=== PATIENT | male | born 1965 | race Caucasian/White ===

== ENCOUNTER 2025-09-08 01:28 | Day surgery (SDC) | payer OTHER, SELFPAY ==
[2025-09-04 08:56] VITALS: BMI 25.7
--- NOTE | 2025-09-04 09:08 | PC.NURSE ---
Addendum entered by William Soriano RN 09/04/25 09:54: Patient stopped Meloxicam on 09-01-2025 per 's instructions. Original Note: [facility] has started construction of its new state of the art ER which will open Spring 2026. With this, we anticipate parking may be a challenge for some our surgical patients and families. Parking spaces are limited but are available for all Surgical, obstetrics, and ER patients sharing this lot. If you arrive and find you are having a hard time finding a parking space, please note that we understand the challenges, please drive around the hospital and park near Hospital Entrance 1. When you enter this entrance, you can ask a volunteer to direct or take you back to the surgical waiting area to check in. We appreciate everyone?s understanding of these expected challenges while we build for your future. Report to the Outpatient Waiting Room, entrance under the green pavilion located off [address], at time _1000_ on date _[phone]_. Planned Procedure Time: _1200_.? Time changes happen often and if your time is changed the preop area will call you the afternoon before. - You and your visitor will be asked to self-screen and do not enter if you have any COVID symptoms. Please call surgeon if you need to reschedule. - A mask is optional within the hospital at this time. Patients may have clear liquids (water, carbonated beverages, clear teas, apple juice) until 3 hours prior to surgery with a maximum of 20 ounces. - No food from midnight until time of surgery and no smoking, or chewing tobacco (or any form of nicotine). No chewing gum, candy or mints. Take only the following medications with a SIP of water on the morning of surgery: __Gabapentin and if needed pain pill.___ DO NOT STOP ANY OF YOUR OTHER PRESCRIPTION MEDICATIONS PRIOR TO SURGERY EXCEPT THE FOLLOWING Hold all vitamins and supplements for 3 days per anesthesiologist. Medications to discontinue per physician Date to take last dose___Today.__ Please no make-up, nail maltese, hairspray, perfume, deodorant, or body powder the day of surgery.? No jewelry (including any body piercings) or valuables the day of surgery, leave them at home.? Please take a shower or bath the night before, or the morning of, surgery with an antibacterial soap.? Wear comfortable, loose fitting clothing.? - Jewelry must be removed prior to entering the operating room.? Rings and piercings that are not removed may be cut off. - The hospital will not accept responsibility for valuables.? - Please leave all valuables, including medications, at home the day of surgery. If you are going home after surgery, a licensed driver's education instructor must drive you home.? - NO public transportation without another adult if you receive anesthesia. - We recommend that an adult stay with you for 24 hours following discharge. - We also recommend that you do not drive, make important decision, drink alcoholic beverages, or take any drugs that were not prescribed by your health care provider for at least 24 hours after your discharge time. Follow any additional instructions given to you from your surgeon. Telephone instructions given to __Edward___and asked if any additional questions and then verbalized understanding. Patient advised to call surgeon office or pre surgery nurse liaison [phone] if any additional questions.
[2025-09-08] VITALS (10 sets, daily range): BP systolic 73–116; BP diastolic 55–82; PULSE 72–99; RESP 11–20; TEMP 36.2; O2SAT 97–100; BMI 25.0
--- NOTE | ~2025-09-08 | XR_ITS ---
EXAMINATION: XR abdomen/kub 1V DATE: 09/08/2025 10:13 INDICATION: Pre Litho right-sided stone TECHNIQUE: A supine view of the abdomen on 2 radiographs was obtained. COMPARISON: None. FINDINGS: Large amount of stool in nondilated large bowel. Moderate amount of air in the large bowel small bowel. 6 mm calcification in the left kidney. There is a 5 mm calcification about the right lateral process of L4. 6 mm calcification in the right hemipelvis. IMPRESSION: 1. There is a 6 mm calcification in the left kidney. 2.There is a 5 mm calcification about the right lateral process of L4 3. Nonspecific abdomen with a large amount of stool. Reviewed, dictated and finalized at location Q.
--- OUTSIDE RECORDS SUMMARY | 2025-09-08 01:31 | XMS_ITS | Clinical Summary ---
Author Organization [facility] Address [address] [place] [address] Care Team Providers Care System Support Administrator Name Role Phone None, Provider MD Primary Care Provider Unavaila ble Allergies No known active allergies Medications oxyCODONE-aceta minophen (PERCOCET) 5-325 MG tabletIndicatio ns:Acute Pain < 7 Day Supply Take 1 tablet by mouth every 6 (six) hours as needed for Pain. Indications: Acute Pain < 7 Day Supply 21 tablet 08/30/2025 Active gabapentin (NEURONTIN) 100 MG capsule Take 1 capsule (100 mg total) by mouth 3 (three) times daily. 90 capsule 08/30/2025 Active dexamethasone (DECADRON) 2 MG tablet Take 2 tablets (4 mg total) by mouth 2 (two) times daily with meals for 10 days. 40 tablet 08/30/2025 Active famotidine (PEPCID) 20 MG tablet Take 1 tablet (20 mg total) by mouth 2 (two) times daily. 60 tablet 08/30/2025 Active Encounters Date Type Department Care Team Description 08/30/2025 12:48 PM CDT - 08/30/2025 9:57 PM CDT Emergency [facility] [place] [address] Dallas Jama MD Back Pain Discharge Disposition: Home or Self Care (Routine Discharge) 08/30/2025 Travel from Last 3 Months Social History Tobacco Use Types Packs/Day Years Used Date Smoking Tobacco: Never Smokeless Tobacco: Never Tobacco Cessation:Counseling Given: Not Answered Sex and Gender Information Value Date Recorded Sex Assigned at Male 08/30/2025 12:54 PM CDT Legal Sex Male 8:08 PM CDT Gender Identity Not on file Sexual Orientation Not on file Last Filed Vital Signs Vital Sign Reading Time Taken Comments Blood Pressure 138/101 08/30/2025 9:46 PM CDT Pulse 89 08/30/2025 9:46 PM CDT Temperature 36.6 C (97.8 F) 08/30/2025 9:46 PM CDT Respiratory Rate 20 08/30/2025 9:46 PM CDT Oxygen Saturation 99% 08/30/2025 9:46 PM CDT Inhaled Oxygen Concentration - - Weight 89.4 kg (197 lb) 08/30/2025 12:37 PM CDT Height 185.4 cm (6' 1) 08/30/2025 12:37 PM CDT Body Mass Index 25.99 08/30/2025 12:37 PM CDT Plan of Treatment Health Maintenance Due Date Last Done Comments Colorectal Cancer Screening Colonoscopy (10 Years) 1965 Annual Physical 1967 Hepatitis C 1982 Pneumococcal Vaccine: 50+ Years (1 of 1 - PCV) 2014 Zoster Vaccines (1 of 2) 2014 COVID-19 Vaccine ( - season) 2025 11/28/2021, 02/14/2021, 01/17/2021 Influenza Adult (#1) 2025 10/07/2022, 11/28/2021, 08/18/2017, Additional history exists DTaP, Tdap and Td Vaccines (2 - Td or Tdap) 08/08/2027 08/08/2017 RSV Immunization or 60+ Years (1 - 1-dose 75+ series) 2039 Meningococcal B Vaccine Aged Out No l onger eligible based on patient's age to complete this topic Meningococcal Vaccine Aged Out No rajan carmina eligible based on patient's age to complete this topic RSV Immunizations Under 20 Months Aged Out No longer eligible based on patient's age to complete this topic Procedures Procedure Name Priority Date/Time Associated Diagnosis Comments MRI LUMB SPINE WO CON STAT 08/30/2025 7:17 PM CDT USV BHAVYA DUPLEX LOW EXT LT STAT 08/30/2025 1:36 PM CDT HC URINALYSIS AUTO W/O MICRO STAT 08/30/2025 1:12 PM CDT D-DIMER, QUANTITATIVE STAT 08/30/2025 12:59 PM CDT BASIC METABOLIC PANEL STAT 08/30/2025 12:59 PM CDT CBC W/DIFF AUTOMATED STAT 08/30/2025 12:59 PM CDT from Last 3 Months Results * MRI LUMB SPINE WO CON (08/30/2025 7:17 PM CDT) Anatomical Region Laterality Modality Spine Magnetic Resonan ce 08/30/2025 7:48 PM CDT Impressions 08/30/2025 7:56 PM CDT IMPRESSION: Degenerative disease as above, without evidence of severe focal spinal canal stenosis. This includes a left-sided disc herniation at L5-S1 with associated left sided nerve compression. Referred By: Interpreted By: Melvin Carroll MD, 08/30/2025 7:48 PM Narrative 08/30/2025 7:56 PM CDT [address] [address] EXAMINATION: MRI LUMB SPINE WO CON HISTORY: Pain and numbness DATE: 08/30/2025 6:58 PM COMPARISON: None TECHNIQUE: Multisequence multiplanar unenhanced imaging of the lumbar spine. FINDINGS: Alignment is unremarkable. No bone marrow edema or fracture. Conus medullaris terminates at L1-2 and tapers normally. Small hemangiomas in the L3 and L4 vertebral bodies. T12-L1: Mild facet arthritis. No significant spinal canal or neuroforaminal narrowing. L1-L2: Moderate facet arthritis. Mild spinal canal narrowing. No significant neuroforaminal narrowing. L2-L3: Moderate facet arthritis. Mild to moderate spinal canal narrowing. Mild bilateral neural foraminal narrowing. L3-L4: Moderate to severe facet arthritis. Small disc bulge. Mild to moderate spinal canal narrowing L4-L5: Severe facet arthritis. Moderate spinal canal narrowing with narrowing of the right lateral recess. Moderate bilateral neuroforaminal narrowing. L5-S1: Disc bulge with superimposed left paracentral extrusion with inferior migration of disc material. This contacts and likely compresses the left S1 nerve root within the lateral recess. Mild spinal canal narrowing overall. There is moderate bilateral neuroforaminal narrowing. There is moderate facet arthritis. Procedure Note Melvin Carroll MD - 08/30/[address] [address] EXAMINATION: MRI LUMB SPINE WO CON HISTORY: Pain and numbness DATE: 08/30/2025 6:58 PM COMPARISON: None TECHNIQUE: Multisequence multiplanar unenhanced imaging of the lumbarspine. FINDINGS: Alignment is unremarkable. No bone marrow edema or fracture.Conus medullaris terminates at L1-2 and tapers normally. Small hemangiomasin the L3 and L4 vertebral bodies. T12-L1: Mild facet arthritis. No significant spinal canal orneuroforaminal narrowing. L1-L2: Moderate facet arthritis. Mild spinal canal narrowing. Nosignificant neuroforaminal narrowing. L2-L3: Moderate facet arthritis. Mild to moderate spinal canal narrowing.Mild bilateral neural foraminal narrowing. L3-L4: Moderate to severe facet arthritis. Small disc bulge. Mild tomoderate spinal canal narrowing L4-L5: Severe facet arthritis. Moderate spinal canal narrowing withnarrowing of the right lateral recess. Moderate bilateral neuroforaminalnarrowing. L5-S1: Disc bulge with superimposed left paracentral extrusion withinferior migration of disc material. This contacts and likely compressesthe left S1 nerve root within the lateral recess. Mild spinal canalnarrowing overall. There is moderate bilateral neuroforaminal narrowing.There is moderate facet arthritis. IMPRESSION: Degenerative disease as above, without evidence of severefocal spinal canal stenosis. This includes a left-sided disc herniation atL5-S1 with associated left sided nerve compression. Referred By: Interpreted By: Melvin Carroll MD, 08/30/2025 7:48 PM Dallas Jama MD MRI Final Result * USV BHAVYA DUPLEX LOW EXT LT (08/30/2025 1:36 PM CDT) Anatomical Region Laterality Modality Vascular Ultraso und 08/30/2025 1:14 PM CDT Narrative 09/01/2025 7:33 AM CDT VENOUS DUPLEX IMAGING LEFT LOWER EXTREMITY [facility]ASCULAR LAB Pat.Name: ANDRAE ALANIZ Pat.ID: [id number] .Date: 08/30/2025 Exam Time: 1:14:00 PM Study Type:DANIEL VS Venous Duplex Leg Lt Age: 2 1965,60Y Sex: M Sonogrphr: [place] Shah, T Pat. Stat.:Inpatient Room: ER History / Clinical:back and gluteal pain with pain and numbness radiating down the left leg, negative D-dimer Procedures: Holguin scale, Color Doppler imaging, Doppler Spectral Analysis ++++++++++++++++++++++++++++++++++++ SUMMARY: ++++++++++++++++++++++++++++++++++++ Left leg: There are NO apparent, deep or superficial vein, ACUTE character venous filling defects visualized in the femoral, popliteal, deep calf or proximal saphenous veins. Resting venous flow is normal phasic proximally. Right leg LIMITED: Resting venous flow is normal phasic at the common femoral. CONCLUSION: No evidence of deep vein thrombosis in the left lower extremity. <Electronic Signature> 09/01/2025 07:33 AM Patrick Guan M.D. Procedure Note Patrick Guan MD - 09/01/2025 VENOUS DUPLEX IMAGING LEFT LOWER EXTREMITY [facility]ASC[facility] Pat.Name: ANDRAE ALANIZ Pat.ID: [id number] .Date: 08/30/2025 Exam Time: 1:14:00 PM Study Type:DANIEL VS Venous Duplex Leg Lt Age: 2 1965,60Y Sex: M Sonogrphr: [place]ico Shah, RVT Pat. Stat.:Inpatient Room: ER History / Clinical:back and gluteal pain with pain and numbness radiating down the left leg, negative D-dimer Procedures: Holguin scale, Color Doppler imaging, Doppler Spectral Analysis ++++++++++++++++++++++++++++++++++++ SUMMARY: ++++++++++++++++++++++++++++++++++++ Left leg: There are NO apparent, deep or superficial vein, ACUTE character venous filling defects visualized in the femoral, popliteal, deep calf or proximal saphenous veins. Resting venous flow is normal phasic proximally. Right leg LIMITED: Resting venous flow is normal phasic at the common femoral. CONCLUSION: No evidence of deep vein thrombosis in the left lower extremity. <Electronic Signature> 09/01/2025 07:33 AM Patrick Guan M.D. Kaela [facility]illo [facility] Final Result * (ABNORMAL) URINALYSIS (08/30/2025 1:12 PM CDT) SPECIMEN TYPE URINE CLEAN CATCH 08/30/2025 1:14 PM CDT [facility] COLOR (U) LIGHT YELLOW 08/30/2025 2:37 PM CDT [facility] TRANSPARENCY CLEAR 08/30/2025 2:37 PM CDT [facility] SPECIFIC GRAVITY (U) 1.018 1.001 - 1.030 08/30/2025 2:37 PM CDT [facility] U PH 5.5 5.0 - 9.0 08/30/2025 2:37 PM CDT [facility] LEUKOCYTES (U) NEGATIVE NEGATIVE 08/30/2025 2:37 PM CDT [facility] NITRITES NEGATIVE NEGATIVE 08/30/2025 2:37 PM CDT [facility] PROTEIN RANDOM (U) NEGATIVE <30 MG/DL 08/30/2025 2:37 PM CDT [facility] GLUCOSE (U) NORMAL NORMAL MG/DL 08/30/2025 2:37 PM CDT [facility] KETONES MG/DL (U) NEGATIVE NEGATIVE MG/DL 08/30/2025 2:37 PM CDT [facility] UROBILINOGEN NORMAL NORMAL MG/DL 08/30/2025 2:37 PM CDT [facility] BILIRUBIN (U) NEGATIVE NEGATIVE MG/DL 08/30/2025 2:37 PM CDT [facility] BLOOD (U) 1+(A) NEGATIVE 08/30/2025 2:37 PM CDT [facility] MUCUS RARE /LPF 08/30/2025 2:37 PM CDT [facility] WBC/HPF 7(H) <6 /HPF 08/30/2025 2:37 PM CDT [facility] RBC/HPF 12(H) <6 /HPF 08/30/2025 2:37 PM CDT [facility] URINE SPECIMEN OBTAINED BY CLEAN CATCH PROCEDURE / Unknown 08/30/2025 1:12 PM CDT us Kaela [facility] URINE ORDERABLES Final Resul t [facility] [address] [place] [address], [place] [phone] * (ABNORMAL) BASIC METABOLIC PANEL (08/30/2025 12:59 PM CDT) GLUCOSE 92 70 - 99 MG/DL 08/30/2025 1:36 PM CDT [facility] BUN 21(H) 7 - 18 MG/DL 08/30/2025 1:36 PM CDT [facility] CREATININE S/P/B 1.30 0.7 - 1.3 MG/DL 08/30/2025 1:36 PM CDT [facility] SODIUM S/P/B 138 136 - 145 MMOL/L 08/30/2025 1:36 PM CDT [facility] POTASSIUM S/P/B 4.0 3.5 - 5.1 MMOL/L 08/30/2025 1:36 PM CDT [facility] CHLORIDE S/P/B 106 97 - 115 MMOL/L 08/30/2025 1:36 PM CDT [facility] CO2 28.5 21 - 32 MMOL/L 08/30/2025 1:36 PM CDT [facility] CALCIUM S/P/B 9.4 8.5 - 10.1 MG/DL 08/30/2025 1:36 PM CDT [facility] ANION GAP 3.5 2 - 10 MMOL/L 08/30/2025 1:36 PM CDT [facility] BUN CREATININE RATIO 16.2 6 - 26 08/30/2025 1:36 PM T [facility] GFR ESTIMATE 63(L) >90 ML/MIN/1.7 3 M2 08/30/2025 1:36 PM CDT [facility] Comment: NOTE: eGFR is not calculated for patients <18 years of age or gender unknown. This is an estimated GFR calculation using the new CKD EPI creatinine equation without race and so does not require a correction factor for race. This estimated GFR should not be used for calculating drug doses. 08/30/2025 12:5 9 PM CDT us [facility] Final Result [facility] [address] [place] [address], * D-DIMER, QUANTITATIVE (08/30/2025 12:59 PM CDT) [facility] D-DIMER <215 0 - 500 ng{FEU}/mL 08/30/2025 2:03 PM CDT [facility] Comment: D-Dimer values less than or equal to 500 ng/mL FEU have a negative predictive value of >95% for exclusion of deep vein thrombosis and pulmonary embolism. In patients over 50 (who tend to have higher normal baseline D-Dimer values), recent studies suggest age-adjusted D-Dimer cutoff values (calculated as: age [years] x 10 ng/mL) result in equivalent outcomes and no additional false negative findings. 08/30/2025 12:5 9 PM CDT [facility] Final Result [facility] [address] [place] [address], * (ABNORMAL) CBC W/DIFF AUTOMATED (08/30/2025 12:59 PM CDT) [facility] WBC 6.45 4.5 - 11.0 x10'3/uL 08/30/2025 1:12 PM CDT [facility] RBC 4.73 4.70 - 6.10 x10'6/uL 08/30/2025 1:12 PM CDT [facility] HGB 14.5 14.0 - 18.0 G/DL 08/30/2025 1:12 PM CDT [facility] HCT 42.3(L) 43.0 - 54.0 % 08/30/2025 1:12 PM CDT [facility] MCV 89.4 80.0 - 94.0 FL 08/30/2025 1:12 PM CDT [facility] MCH 30.7 27.0 - 31.0 PG 08/30/2025 1:12 PM CDT [facility] MCHC 34.3 32.0 - 36.0 G/DL 08/30/2025 1:12 PM CDT [facility] RDW 12.7 11.5 - 14.5 % 08/30/2025 1:12 PM CDT [facility] PLT 207 130 - 400 x10'3/uL 08/30/2025 1:12 PM CDT [facility] MPV 11.7 9.3 - 12.2 FL 08/30/2025 1:12 PM CDT [facility] DIFFERENTIAL TYPE AUTOMATED DIFFERENTIAL 08/30/2025 1:12 PM CDT [facility] NEUTROPHILS % 68.1 % 08/30/2025 1:12 PM CDT [facility] LYMPHOCYTES % 22.3 % 08/30/2025 1:12 PM CDT [facility] MONOCYTES % 7.8 % 08/30/2025 1:12 PM CDT [facility] EOSINOPHILS 0.9 % 08/30/2025 1:12 PM CDT [facility] BASOPHILS 0.6 % 08/30/2025 1:12 PM CDT [facility] IMMATURE GRANS % 0.3 % 08/30/20 1:12 PM CDT [facility] ABS. NEUTROPHILS 4.39 1.80 - 7.70 x10'3/uL 08/30/2025 1:12 PM CDT [facility] ABS. LYMPHOCYTES 1.44 1.00 - 4.80 x10'3/uL 08/30/2025 1:12 PM CDT [facility] ABS. MONOCYTES 0.50 0.30 - 0.82 x10'3/uL 08/30/2025 1:12 PM CDT [facility] ABS. EOSINOPHILS 0.06 0.04 - 0.54 x10'3/uL 08/30/2025 1:12 PM CDT [facility] ABS. BASOPHILS 0.04 0.01 - 0.08 x10'3/uL 08/30/2025 1:12 PM CDT [facility] ABS. IMMATURE GRANULOCYTES 0.02 0.00 - 0.49 x10'3/uL 08/30/2025 1:12 PM CDT [facility] 08/30/2025 12:5 9 PM CDT [facility] Final Result Performing Organization Address City/State/[facility] Co de Phone Number [facility] [address] [place] [address], [place] [phone] from Last 3 Months Insurance [facility] [employer] Care Teams System Support Administrator Relationship Specialty Start Date End Date None, Provider, MD PCP - General UNKNOWN PHYSICIAN SPECIALTY 08/30/25
--- OUTSIDE RECORDS SUMMARY | 2025-09-08 01:31 | XMS_ITS | Clinical Summary ---
Author Organization [facility] Address [address] [place] [address] Phone Care Team Providers Care Continuous Dryout Operator Name Role Phone Joseph Powers MD Primary Care Provider [phone] Allergies No known active allergies Medications fenofibrate micronized (LOFIBRA) 200 MG Capsule Fenofibrate Micronized 200 MG Oral Capsule QTY: 90 capsule Days: 90 Refills: 3 Written: 03/15/20 Patient Instructions: TAKE 1 CAPSULE AT BEDTIME 11/30/19 00 Active HYDROcodone-ac etaminophen (NORCO) 7.5-325 MG Tablet 01/16/20 20 Active lisinopril (PRINIVIL, ZESTRIL) 20 MG Tablet Lisinopril 20 MG Oral Tablet QTY: 90 tablet Days: 90 Refills: 3 Written: 10/19/19 Patient Instructions: TAKE 1 TABLET DAILY 10/19/20 19 Active Edex 10 MCG Kit INJECT 1 KIT BY INTRACAVERNOSAL ROUTE ONCE FOR ONE DOSE PRIOR TO XIAFLEX INJECTION 11/01/20 20 Active Xiaflex 0.9 MG Recon Soln 10/30/20 20 Active meloxicam (MOBIC) 15 MG Tablet 01/07/20 21 Active Active Problems Problem Noted Date Diagnosed Date Peyronie's disease 01/10/2021 Social History Tobacco Use Types Packs/Day Years Used Date Smoking Tobacco: Former Cigarettes Q uit: 04/18/1994 Smokeless Tobacco: Former Chew Quit: 04/18/1994 Tobacco Cessation:Counseling Given: Yes Alcohol Use Standard Drinks/Week Comments Not Currently 0 (1 standard drink = 0.6 oz pur e alcohol) Sexually Active Control Partners Comments Yes Female Sex and Gender Information Value Date Recorded Sex Assigned at Not on file Legal Sex Male 3:46 PM CDT Gender Identity Not on file Sexual Orientation Not on file Last Filed Vital Signs Vital Sign Reading Time Taken Comments Blood Pressure 136/82 01/10/2021 8:17 AM TRANSPORTATION SOLUTIONS MANAGER Pulse 77 01/10/2021 8:17 AM TRANSPORTATION SOLUTIONS MANAGER Temperature 35.7 C (96.3 F) 01/10/2021 8:17 AM TRANSPORTATION SOLUTIONS MANAGER Respiratory Rate 16 11/22/2020 9:10 AM TRANSPORTATION SOLUTIONS MANAGER Oxygen Saturation 98% 01/10/2021 8:17 AM TRANSPORTATION SOLUTIONS MANAGER Inhaled Oxygen Concentration - - Weight 103.4 kg (228 lb) 01/10/2021 8:17 AM TRANSPORTATION SOLUTIONS MANAGER Height 185.4 cm (6' 1) 01/10/2021 8:17 AM TRANSPORTATION SOLUTIONS MANAGER Body Mass Index 30.08 01/10/2021 8:17 AM TRANSPORTATION SOLUTIONS MANAGER Plan of Treatment Health Maintenance Due Date Last Done Comments Hepatitis C Virus (HCV) Screening 1965 Cologuard 2009 Colonoscopy 2009 Colorectal Cancer Screening 2009 Immunochemical Fecal Occult Blood 2009 Pneumococcal Immunization (5 0+ years) (1 of 1 - PCV) 2014 Zoster Immunization (1 of 2) 2014 Influenza Immunization (#1) 07/31/202507/31, 08/08/2017 SARS-COV-2 Immunization ( season) 2025 11/28/2021, 02/14/2021, 01/17/2021 Respiratory Syncytial Virus (RSV) Immunization (Adult) (1 - 1-dose 75+ series) 2039 DTaP/Tdap/Td Immunization Discontinued 08/08/2017 TdaP Immunization Completed 08/08/2017 Hepatitis B Immunization Aged Out No longer eligible based on patient's age to complete this topic Human Papillomavirus (HPV) Immunization Aged Out No longer eligible based on patient's age to complete this topic Meningococcal Immunization (ACWY) Aged Out No longer eligible based on patient's age to complete this topic Rotavirus Immunization Aged Out No lo nger eligible based on patient's age to complete this topic Insurance [facility] Care Teams Continuous Dryout Operator Relationship Specialty Start Date End Date Joseph Powers MD [address] [place] [address] PCP - General Family Medicine 09/24/20
--- NOTE | 2025-09-08 09:02 | ECG_ITS ---
Test Date: 2025-09-08 10:33:14 Measurements Intervals [place] Rate: 85 P: 15 MT: 156 QRS: 2 QRSD: 84 T: 28 QT: 358 QTc: 427 Interpretive Statements SINUS RHYTHM NORMAL ECG No previous ECG available for comparison Electronically Signed On 09-08-2025 10:41:46 CDT by Lionel Gibson D.O.
[2025-09-08] MEDS: LACTATED RINGERS 1,000 ML 30 ML IV CONT (10:45)
--- NOTE | 2025-09-08 10:52 | WPDHPUPDATE1 ---
History and Physical Update Update Date/Time: 09/08/25 10:52 History and Physical has been reviewed, including an updated exam of the patient. There are NO changes in the patient's condition. Risks, benefits, and alternatives have been discussed and questions answered. Patient agrees to proceed with procedure.
[2025-09-08 10:59] LABS: INR 1.0; Prothrombin Time 13.1 Seconds (11.1-14.7)
[2025-09-08 11:00] LABS: Partial Thromboplastin Time 22.8 Seconds (22.3-36.8)
--- NOTE | 2025-09-08 11:13 | WPDANESEPPF ---
Anes - Initial Pre Proc Eval Procedure: Operation Date: 09/08/25 12:00 Proposed Procedures p Right Extracorporeal Shock Wave Lithotripsy - Connor Tierney MD Date/Time: 09/08/25 11:13 Surgeon: Connor Tierney MD Pre Op Diagnosis: urolithiasis Patient Data Age: 60 Gender: M Height: 1.85 m Weight: 85.85 kg Last Vital Signs Temp 36.2 C L 09/08/25 10:45 Pulse 99 09/08/25 10:45 BP 90/66 L 09/08/25 10:45 Pulse Ox 100 09/08/25 10:45 O2 Del Method Room Air 09/08/25 10:45 Allergies Allergy/AdvReac Type Severity Reaction Status Date / Time No Known Allergies Allergy Verified 09/08/25 10:52 Home Medications ?Medication ?Instructions ?Recorded ?Confirmed ?Type cyanocobalamin (vitamin B-12) 1,000 mcg PO DAILY 09/04/25 09/04/25 History 1,000 mcg tablet (Vitamin B-12) dimenhydrinate 50 mg tablet 50 mg PO Q6H PRN motion sickness 09/04/25 09/04/25 History (Dramamine) fenofibrate 160 mg tablet 160 mg PO DAILY 09/04/25 09/04/25 History gabapentin 100 mg capsule 100 mg PO TID 09/04/25 09/08/25 History hydrocodone 7.5 mg-acetaminophen 1 tablet PO Q6H PRN pain 09/04/25 09/08/25 History 325 mg tablet levofloxacin 250 mg tablet 250 mg PO DAILY 09/04/25 09/04/25 History lisinopril 40 mg tablet 40 mg PO DAILY 09/04/25 09/04/25 History magnesium glycinate 100 mg PO HS 09/04/25 09/04/25 History meloxicam 15 mg tablet 15 mg PO DAILY 09/04/25 09/04/25 History multivitamin (Daily Multi-Vitamin 1 tablet PO DAILY 09/04/25 09/04/25 History tablet) oxycodone-acetaminophen 5 mg-325 1 tablet PO Q6H PRN pain 09/04/25 09/04/25 History mg tablet tamsulosin 0.4 mg capsule 0.4 mg PO DAILY 09/04/25 09/04/25 History trazodone 100 mg tablet 100 mg PO HS 09/04/25 09/04/25 History Laboratory Tests 09/08/25 10:41 PT 13.1 Seconds (11.1-14.7) INR 1.0 APTT 22.8 Seconds (22.3-36.8) Patient hx anesthesia problems: none Family hx anesthesia problems: none Results Review: All pre-operative results and documents have been reviewed as part of the pre-operative evaluation. [facility] Past Medical History Medical History (Updated 09/07/25 @ 15:37 by Fermín Muñiz DO) Hypertension Hyperlipidemia Social History Social History Smoking packs per day: 1 Smoking cigarettes per day: 20.0 Years smoked: 15 Smoking pack-years: 15.00 Smoking status: Former smoker Tobacco type: cigarettes Smokeless tobacco user: chewing tobacco Smoking end date: 09/04/95 Alcohol intake: current Living arrangements: with family Spiritual care concerns: No Anes - Eval Final PreProcedure Day of Procedure 09/08/25 11:13 Patient weight: normal Heart: regular rate and rhythm Lungs: clear to auscultation and normal air movement Airway: Mallampati scale class II Neurological: alert and oriented Last oral intake: >/= 8 hours ASA classification: II Emergent: no Anesthetic plan: proceed Anesthesia type and monitoring: general GIVS and standard monitoring Results Review: All pre-operative results and documents have been reviewed as part of the pre-operative evaluation. Informed Consent: The patient's anesthetic plan and its attendant risks and benefits were discussed with the patient/family/POA. Questions were solicited and answers provided to the satisfaction of the patient/family/POA.
[2025-09-08] MEDS: SCOPOLAMINE 1 MG PATCH 1 PATCH TRANSDERM (11:56)
--- NOTE | 2025-09-08 12:12 | W.PM.PROC2 ---
Procedure Note - Detailed Date of Procedure 09/08/25 Pre-op Diagnosis Right mid-ureteral stone Post-op Diagnosis Same Procedure Performed Right ESWL Surgeon Connor Tierney MD Anesthesia General Description of Procedure The patient was brought to the operative suite where he was placed in the supine position on the [facility] lithotripsy table. The focal point of the lithotripter was placed at a 7mm right mid-ureteral calculus. A total of 2500 shocks were delivered at a power setting of 2-5. There appeared to be good fragmentation of the stone. The patient tolerated the procedure well and was taken to the recovery room in good condition. Drains No Packing No Pathology None sent Complications No immediate complications
[2025-09-08] MEDS: oxyCODONE HCL (*CRX) 5 MG TAB IR PO (13:38)
== END 2025-09-08 14:17 | disposition home or self-care (01) ==
PROVIDERS: Visit Provider Urology
PROC: (CPT 50590; principal; 2025-09-08 12:00)
DX: N20.1 Calculus of ureter (principal); E78.5 Hyperlipidemia, unspecified; I10 Essential (primary) hypertension; F17.220 Nicotine dependence, chewing tobacco, uncomplicated; Z79.891 Long term (current) use of opiate analgesic; Z98.890 Other specified postprocedural states
CPT/HCPCS: 50590; 36415; 74018; 85610; 85730; 93005; A9270; J1100; J2250; J2405; J2704; J3010; J7120